=== PATIENT | male | born 1960 | race Caucasian/White ===

== ENCOUNTER 2024-10-15 08:31 | Emergency (ER) | payer MEDICAID, OTHER ==
[~2024-10-15] VITALS: Ht 170.2 cm; Wt 80.0 kg
[2024-10-15 08:35] VITALS: BP 140/64; PULSE 67; RESP 18; TEMP 36.7; O2SAT 99
[2024-10-15] MEDS: LIDOCAINE HCL/PF 1% 10 MG/ML 5ML VIAL INFIL ONE (10:13)
[2024-10-15] MEDS: BACITRACIN ZINC OINT UDPKT TOP ONE (10:13)
[2024-10-15] MEDS: TETANUS, DIPHTHERIA, PERTUSSIS VAC/PF 0.5ML (>10YR OLD) IM ONE (10:13)
[2024-10-15] MEDS: ACETAMINOPHEN 325MG TABLET PO ONE (10:13)
[2024-10-15] MEDS ORDERED: BO1 TP (11:30)
== END 2024-10-15 11:45 | disposition home or self-care (01) ==
LOC: ER 08:39
DX: S01.81XA Laceration without foreign body of other part of head, initial encounter (principal); E11.9 Type 2 diabetes mellitus without complications; I10 Essential (primary) hypertension; W19.XXXA Unspecified fall, initial encounter; X58.XXXA Exposure to other specified factors, initial encounter; Y93.89 Activity, other specified; Y92.89 Other specified places as the place of occurrence of the external cause; Y99.8 Other external cause status
CPT/HCPCS: 70450; 12014; 99284; J2003; Z7610 ×2

== ENCOUNTER 2024-10-23 11:24 | Emergency (ER) | payer MEDICAID ==
[~2024-10-23] VITALS: Ht 172.7 cm; Wt 81.6 kg
[~2024-10-23 11:24] MED LIST: BO1 TP
[2024-10-23 11:28] VITALS: TEMP 36.8; O2SAT 100
[2024-10-23] MEDS ORDERED: CEPH500C2 MT (12:42)
[2024-10-23] MEDS ORDERED: BO1 TP (12:43)
[2024-10-23 12:57] VITALS: BP 115/72; PULSE 73; RESP 16; O2SAT 100
== END 2024-10-23 11:59 | disposition home or self-care (01) ==
LOC: ER 11:24
DX: S01.81XD Laceration without foreign body of other part of head, subsequent encounter (principal); E11.9 Type 2 diabetes mellitus without complications; I10 Essential (primary) hypertension; L08.9 Local infection of the skin and subcutaneous tissue, unspecified; X58.XXXD Exposure to other specified factors, subsequent encounter
CPT/HCPCS: 99283; Z7610